=== PATIENT | male | born 1950 | race Caucasian/White ===

== ENCOUNTER 2016-03-12 11:24 | Outpatient (CLI) | payer MEDICARE, OTHER | END 2016-03-12 11:25 | disposition home or self-care (01) | DX: M51.36 Other intervertebral disc degeneration, lumbar region (principal); M47.816 Spondylosis without myelopathy or radiculopathy, lumbar region; M19.011 Primary osteoarthritis, right shoulder; M16.0 Bilateral primary osteoarthritis of hip ==

== ENCOUNTER 2016-06-02 12:13 | Outpatient (CLI) | payer MEDICARE, OTHER | END 2016-06-02 12:14 | disposition home or self-care (01) | DX: R91.8 Other nonspecific abnormal finding of lung field (principal) ==

== ENCOUNTER 2016-12-22 18:47 | Outpatient (CLI) | payer MEDICARE, OTHER | END 2016-12-22 18:48 | disposition short-term general hospital (02) | LOC: EMS 18:47 | PROVIDERS: ATTEND Surgery | DX: R06.00 Dyspnea, unspecified (principal); R07.9 Chest pain, unspecified | CPT/HCPCS: A0425; A0427 ==